=== PATIENT | male | born 1990 | race Caucasian/White ===

== ENCOUNTER 2016-05-24 14:43 | Emergency (ER) | payer OTHER ==
[~2016-05-24] VITALS: Ht 182.9 cm; Wt 70.4 kg
[~2016-05-24 14:43] MED LIST: ALBUTEROL SULF8.5 GM IH; AUGMENTIN875 MG PO; CELEXA20 MG PO; CITALOPRAM HBR20 MG PO; CLEOCIN300 MG PO; CLINDAMYCIN HC300 MG PO; FLOMAX0.4 MG PO; HYDROCODON-ACE1 EAC7 PO; IBUPROFEN600 MG PO; MOTRIN800 MG PO; NAPROSYN500 MG PO; NAPROXEN500 MG PO; NO MEDS; NOHOMEMEDS; NORCO 5/3251 TABLET PO; OXYCODONE H5 MG/5 ML PO; PEN-VEE K,VEET500 MG PO; PERCOCET 5/31 TABLET PO; PERIDEX1 ML MM; POLYTRIM EYE DR10 ML RIGHT EYE; TYLENOL WITH C1 EACH PO; ULTRACET1 TABLET PO; VIGAMOX 0.60 DROP/3 RIGHT EYE
[2016-05-24] MEDS ORDERED: LIDOCAINE20 MG/1 M5 PO (17:01)
[2016-05-24 17:29] VITALS: BP 136/89
== END 2016-05-24 17:30 | disposition home or self-care (01) ==
LOC: RME 14:43 → EME 14:43 → RME 17:30
DX: J02.9 Acute pharyngitis, unspecified (principal)
CPT/HCPCS: 70360; 87651 90; 99281; 99284; J8540

== ENCOUNTER 2016-09-26 22:55 | Emergency (ER) | payer OTHER ==
[~2016-09-26] VITALS: Ht 182.9 cm; Wt 69.3 kg
[~2016-09-26 22:55] MED LIST changes: +LIDOCAINE20 MG/1 M5 PO
[2016-09-26 23:46] LABS: HEMATOCRIT 45.1 % (38.0-50.0); MCH 32.1 PG (29.0-34.0); MCHC 33.9 G/DL (30.0-36.0); MCV 94.7 FL (86-99); PLATELET COUNT 202 K/uL (156-360); RBC DIS.WIDTH-CV 14.1 % (11.8-14.6); RED BLOOD COUNT 4.76 M/uL (4.00-5.50); WHITE BLOOD COUNT 6.4 K/uL (4.1-10.2)
[2016-09-27 00:04] LABS: ADD MIUA? NO; BILIRUBIN NEGATIVE; BLOOD NEGATIVE; COLOR COLORLESS ((YELLOW)); GLUCOSE (STRIP) NEGATIVE; KETONES NEGATIVE; LEUKOCYTES NEGATIVE; NITRITE NEGATIVE; PROTEIN (STRIP) NEGATIVE; SPECIFIC GRAVITY 1.003 (1.000-1.030); UCUL ADDED? NO; UROBILINOGEN 0.2 MG/DL (0.2-1.0)
[2016-09-27 00:14] LABS: CHLORIDE 111 mEq/L (99-109); POTASSIUM 3.9 mEq/L (3.7-5.4); SODIUM 147 mEq/L (136-147)
[2016-09-27 00:16] LABS: GLUCOSE 88 mg/dL (70-99)
[2016-09-27 00:17] LABS: ANION GAP 9 MEQ/L (2-14)
[2016-09-27 00:19] LABS: SERUM ETHYL ALCOHOL 189 mg/dL
[2016-09-27 00:20] LABS: GFR ESTIMATE (CALCULATED) > 59 mL/min/; UREA NITROGEN (BUN) 12 mg/dL (9-23)
[2016-09-27 00:27] LABS: ADD MEDTOX COMMENT Y; AMPHETAMINE NEGATIVE (500 ng/mL); BARBITURATES NEGATIVE (200 ng/mL); BENZODIAZEPINES NEGATIVE (150 ng/mL); COCAINE PRESUMPTIVE POSITIVE (150 ng/mL); INTERNAL CONTROLS VALID? YES; METHADONE NEGATIVE (200 ng/mL); METHAMPHETAMINE NEGATIVE (500 ng/mL); OPIATES (MORPHINE) NEGATIVE (100 ng/mL); OXYCODONE NEGATIVE (100 ng/mL); PHENCYCLIDINE NEGATIVE (25 ng/mL); PROPOXYPHENE NEGATIVE (300 ng/mL); THC CANNABINOIDS PRESUMPTIVE POSITIVE (50 ng/mL); TRICYCLIC ANTIDEPRESSANTS NEGATIVE (300 ng/mL)
[2016-09-27] MEDS ORDERED: PEPCID20 MG PO (00:30)
[2016-09-27 09:20] VITALS: BP 104/53
== END 2016-09-27 14:02 ==
LOC: EME 22:55
PROVIDERS: Emergency Medicine
PROC: 3E0234Z Introduction of Serum, Toxoid and Vaccine into Muscle, Percutaneous Approach (ICD-10-PCS; principal; 2016-09-26)
DX: S11.91XA Laceration without foreign body of unspecified part of neck, initial encounter (principal); X78.8XXA Intentional self-harm by other sharp object, initial encounter; F10.20 Alcohol dependence, uncomplicated; F14.10 Cocaine abuse, uncomplicated; F12.10 Cannabis abuse, uncomplicated; F17.200 Nicotine dependence, unspecified, uncomplicated
CPT/HCPCS: 80048; 81003; 84999; 85027; 90837; 99281; 99285; G0480

== ENCOUNTER 2017-07-17 18:09 | Emergency (ER) | payer OTHER ==
[~2017-07-17] VITALS: Ht 185.4 cm; Wt 68.4 kg
[~2017-07-17 18:09] MED LIST changes: +PEPCID20 MG PO
[2017-07-17] MEDS ORDERED: MOTRIN600 MG PO (20:33)
[2017-07-17 20:40] VITALS: BP 110/74
== END 2017-07-17 20:40 | disposition home or self-care (01) ==
LOC: EME 18:09 → EXP 18:09
DX: J02.9 Acute pharyngitis, unspecified (principal)
CPT/HCPCS: 87651 90; 99281; 99283

== ENCOUNTER 2017-08-27 12:23 | Emergency (ER) | payer OTHER ==
[~2017-08-27] VITALS: Ht 185.4 cm; Wt 68.7 kg
[~2017-08-27 12:23] MED LIST changes: +MOTRIN600 MG PO
[2017-08-27 13:21] LABS: APPEARANCE CLEAR ((CLEAR)); BILIRUBIN NEGATIVE; BLOOD NEGATIVE; COLOR YELLOW ((YELLOW)); GLUCOSE (STRIP) NEGATIVE; KETONES NEGATIVE; LEUKOCYTES NEGATIVE; NITRITE NEGATIVE; PROTEIN (STRIP) NEGATIVE; UCUL ADDED? NO; UROBILINOGEN 0.2 MG/DL (0.2-1.0)
[2017-08-27] MEDS ORDERED: LIDODERM 5% P1 PATCH TD (13:24)
[2017-08-27] MEDS ORDERED: MOTRIN800 MG PO (13:24)
[2017-08-27] MEDS ORDERED: VOLTAREN 1% GE100 GM TP (13:24)
[2017-08-27] MEDS ORDERED: BACLOFEN10 MG PO (13:24)
[2017-08-27 13:33] VITALS: BP 126/91
== END 2017-08-27 13:34 | disposition home or self-care (01) ==
LOC: RME 12:23 → EME 12:23 → RME 13:34
PROVIDERS: Nurse Practitioner Family
DX: M54.41 Lumbago with sciatica, right side (principal); M54.42 Lumbago with sciatica, left side
CPT/HCPCS: 81003; 99281; 99284; J1885

== ENCOUNTER 2017-09-04 13:31 | Emergency (ER) | payer OTHER ==
[~2017-09-04] VITALS: Ht 185.4 cm; Wt 67.5 kg
[~2017-09-04 13:31] MED LIST changes: +BACLOFEN10 MG PO; +LIDODERM 5% P1 PATCH TD; +VOLTAREN 1% GE100 GM TP
[2017-09-04 13:34] VITALS: BP 128/85
[2017-09-04] MEDS ORDERED: MOBIC7.5 MG PO (15:26)
[2017-09-04] MEDS ORDERED: ROBAXIN750 MG PO (15:26)
[2017-09-04] MEDS ORDERED: ULTRACET1 TABLET PO (15:26)
== END 2017-09-04 15:54 | disposition home or self-care (01) ==
LOC: EME 13:31
DX: S39.012A Strain of muscle, fascia and tendon of lower back, initial encounter (principal); X50.9XXA Other and unspecified overexertion or strenuous movements or postures, initial encounter; Y93.G1 Activity, food preparation and clean up; Y99.0 Civilian activity done for income or pay
CPT/HCPCS: 99281; 99285